=== PATIENT | female | born 1980 | race Asian ===

== ENCOUNTER → 2016-12-23 | Outpatient (CLI) | payer OTHER ==
[2016-12-23 12:34] LABS: ALANINE AMINOTRANSFERASE 19 U/L (12-78); ALBUMIN 4.2 g/dL (3.4-5.0); ALKALINE PHOSPHATASE 58 U/L (46-116); ANION GAP 7 mmol/L (8-16); ASPARTATE AMINOTRANSFERASE 12 U/L (15-37); BILIRUBIN,TOTAL 1.7 mg/dL (0.1-1.0); CALCIUM, TOTAL 8.9 mg/dL (8.8-10.5); CARBON DIOXIDE 26 mmol/L (22-29); CHLORIDE 102 mmol/L (98-107); CHOL/HDL RATIO 2.8 (3.9-5.7); CHOLESTEROL 204 mg/dL (131-200); CREATININE 0.62 mg/dL (0.60-1.30); GLOMERULAR FILTR. RATE CALC > 60 mL/min (>60); GLUCOSE,RANDOM 89 mg/dL (70-110); HDL CHOLESTEROL 72 mg/dL (40-60); LDL CHOL (CALC.) 117 mg/dL (0-130); POTASSIUM 4.5 mmol/L (3.5-5.1); SODIUM SERUM 135 mmol/L (136-145); THYROID STIMULATING HORMONE 1.09 uIU/mL (0.36-3.74); TOTAL PROTEIN, SERUM 7.6 g/dL (6.4-8.2); TRIGLYCERIDES 73 mg/dL (15-150); UREA NITROGEN, BLOOD 9 mg/dL (7-18)
== END | disposition home or self-care (01) ==
LOC: LABPV 11:05
PROVIDERS: ATTEND Internal Medicine
DX: Z00.00 Encounter for general adult medical examination without abnormal findings (principal)
CPT/HCPCS: 84443

== ENCOUNTER → 2017-01-06 | Outpatient (CLI) | payer OTHER ==
[2017-01-06 15:33] LABS: BILIRUBIN,TOTAL 1.3 mg/dL (0.1-1.0)
[2017-01-06 15:34] LABS: BILIRUBIN,DIRECT 0.2 mg/dL (0.00-0.20)
== END | disposition home or self-care (01) ==
LOC: LABPV 14:00
PROVIDERS: ATTEND Internal Medicine
DX: R17 Unspecified jaundice (principal)
CPT/HCPCS: 82247; 82248; 82977

== ENCOUNTER → 2017-04-13 | Outpatient (CLI) | payer OTHER ==
[2017-04-13 15:40] LABS: BASOPHILS % (AUTO) 0.6 % (0.0-2.0); EOSINOPHILS % (AUTO) 1.7 % (1.0-6.0); HEMATOCRIT 41.3 % (36-46); LYMPHOCYTES # (AUTO) 1.6 K/uL (1.0-4.8); LYMPHOCYTES % (AUTO) 29.6 % (22.0-44.0); MEAN CORPUSCULAR HEMOGLOBIN 29.1 pg (26.0-34.0); MEAN CORPUSCULAR HGB CONC 33.8 G/dL (31.0-37.0); MEAN CORPUSCULAR VOLUME 86 fL (80-100); MONOCYTES # (AUTO) 0.3 K/uL (0.1-1.0); MONOCYTES % (AUTO) 5.9 % (2.0-9.0); NEUTROPHILS # (AUTO) 3.3 K/uL (1.8-7.7); NEUTROPHILS % (AUTO) 62.2 % (40.0-70.0); PLATELET COUNT (AUTO) 268 K/uL (150-450); RED CELL DISTRIBUTION WIDTH 12.5 % (11.5-14.5)
== END | disposition home or self-care (01) ==
LOC: LABPV 14:13
PROVIDERS: ATTEND Internal Medicine
DX: R17 Unspecified jaundice (principal)
CPT/HCPCS: 82247

== ENCOUNTER → 2017-06-08 | Outpatient (CLI) | payer OTHER ==
[2017-06-08 16:11] LABS: HEMATOCRIT 41.2 % (36-46); HEMOGLOBIN 14.3 g/dL (12.0-16.0); MEAN CORPUSCULAR HEMOGLOBIN 29.8 pg (26.0-34.0); MEAN CORPUSCULAR HGB CONC 34.7 G/dL (31.0-37.0); MEAN CORPUSCULAR VOLUME 86 fL (80-100); PLATELET COUNT (AUTO) 335 K/uL (150-450); RED CELL DISTRIBUTION WIDTH 13.1 % (11.5-14.5)
[2017-06-08 17:11] LABS: HEMOGLOBIN A1C 5.6 % (4.5-6.2)
== END | disposition home or self-care (01) ==
LOC: LABPV 14:12
PROVIDERS: ATTEND Obstetrics & Gynecology
DX: Z34.81 Encounter for supervision of other normal pregnancy, first trimester (principal); Z3A.00 Weeks of gestation of pregnancy not specified
CPT/HCPCS: 83036; 86900; 86901

== ENCOUNTER → 2017-06-10 | Outpatient (CLI) | payer OTHER ==
[2017-06-10 11:59] LABS: HEMATOCRIT 42.2 % (36-46); HEMOGLOBIN 14.6 g/dL (12.0-16.0); MEAN CORPUSCULAR HEMOGLOBIN 29.6 pg (26.0-34.0); MEAN CORPUSCULAR HGB CONC 34.6 G/dL (31.0-37.0); MEAN CORPUSCULAR VOLUME 86 fL (80-100); PLATELET COUNT (AUTO) 324 K/uL (150-450); RED BLOOD CELL COUNT(AUTO) 4.92 MIL/uL (4.00-5.20)
[2017-06-10 12:14] LABS: HEMOGLOBIN A1C 5.2 % (4.5-6.2)
== END | disposition home or self-care (01) ==
LOC: LABMN 11:32
PROVIDERS: ATTEND Obstetrics & Gynecology
DX: Z34.81 Encounter for supervision of other normal pregnancy, first trimester (principal); Z3A.00 Weeks of gestation of pregnancy not specified
CPT/HCPCS: 83036; 86900; 86901

== ENCOUNTER 2017-06-13 09:06 | Day surgery (SDC) | payer OTHER ==
[~2017-06-13] VITALS: Ht 149.9 cm; Wt 47.7 kg
[~2017-06-13 09:06] MED LIST: RINGERS SOLUTION,LACTATED 1,000 ML IV ONE
[2017-06-13] MEDS ORDERED: FentaNYL CITRATE-PF 100 MCG/2 ML VIAL IVP ONE (09:07)
[2017-06-13] MEDS ORDERED: MIDAZOLAM HCL 2 MG/2 ML VIAL IVP ONE (09:07)
[2017-06-13] MEDS ORDERED: KETOROLAC TROMETHAMINE 60 MG/2 ML VIAL IM ONE (09:07)
[2017-06-13] MEDS ORDERED: LIDOCAINE HCL/PF 2% 5 ML VIAL IM ONE (09:07)
[2017-06-13] MEDS ORDERED: PROPOFOL 1% 20 ML VIAL IVP ONE (09:07)
[2017-06-13] MEDS ORDERED: RINGERS SOLUTION,LACTATED 1,000 ML IV ONE ×2 (09:30→12:32)
[2017-06-13] MEDS ORDERED: METHYLERGONOVINE MALEATE 0.2 MG/ML VIAL ONE (11:28)
[2017-06-13] MEDS ORDERED: HYDROmorphone 2 MG/ML SYRINGE ONE (11:56)
[2017-06-13] MEDS ORDERED: FentaNYL CITRATE-PF 100 MCG/2 ML VIAL IVP PRN (12:00)
[2017-06-13] MEDS ORDERED: HYDROmorphone 2 MG/ML SYRINGE IVP PRN (12:00)
[2017-06-13] MEDS ORDERED: ONDANSETRON HCL 4 MG/2 ML VIAL IVP PRN (12:00)
[2017-06-13] MEDS ORDERED: MORPHINE SULFATE 2 MG/ML SYRINGE IVP PRN (12:00)
[2017-06-13] MEDS ORDERED: MEPERIDINE-PF 25 MG/ML SYRINGE IVP PRN (12:00)
[2017-06-13] MEDS ORDERED: ONDANSETRON HCL 4 MG/2 ML VIAL ONE (12:30)
== END 2017-06-13 14:15 | disposition home or self-care (01) ==
LOC: SURGERY 09:06
PROVIDERS: ATTEND Obstetrics & Gynecology
DX: O02.1 Missed abortion (principal); Z3A.08 8 weeks gestation of pregnancy; Z98.890 Other specified postprocedural states
CPT/HCPCS: 59820; 88305; J1170; J1885; J2210; J2250; J2405; J2704; J3010; J3490; J7120

== ENCOUNTER → 2018-08-07 | Outpatient (CLI) | payer OTHER ==
[2018-08-07 16:12] LABS: BASOPHILS % (AUTO) 0.9 % (0.0-2.0); EOSINOPHILS % (AUTO) 2.8 % (1.0-6.0); HEMATOCRIT 43.6 % (36-46); HEMOGLOBIN 14.4 g/dL (12.0-16.0); LYMPHOCYTES # (AUTO) 1.5 K/uL (1.0-4.8); LYMPHOCYTES % (AUTO) 26.8 % (22.0-44.0); MEAN CORPUSCULAR HEMOGLOBIN 28.4 pg (26.0-34.0); MEAN CORPUSCULAR HGB CONC 33.1 G/dL (31.0-37.0); MEAN CORPUSCULAR VOLUME 86 fL (80-100); MONOCYTES # (AUTO) 0.4 K/uL (0.1-1.0); NEUTROPHILS # (AUTO) 3.6 K/uL (1.8-7.7); NEUTROPHILS % (AUTO) 62.5 % (40.0-70.0); PLATELET COUNT (AUTO) 311 K/uL (150-450); RED BLOOD CELL COUNT(AUTO) 5.07 MIL/uL (4.00-5.20); RED CELL DISTRIBUTION WIDTH 12.3 % (11.5-14.5)
[2018-08-07 16:31] LABS: HEMOGLOBIN A1C 5.4 % (4.5-6.2)
[2018-08-07 16:32] LABS: ALANINE AMINOTRANSFERASE 19 U/L (12-78); ALBUMIN 4.1 g/dL (3.4-5.0); ALKALINE PHOSPHATASE 70 U/L (46-116); ANION GAP 8 mmol/L (8-16); ASPARTATE AMINOTRANSFERASE 15 U/L (15-37); BILIRUBIN,TOTAL 2.3 mg/dL (0.1-1.0); CARBON DIOXIDE 27 mmol/L (22-29); CHLORIDE 103 mmol/L (98-107); CHOL/HDL RATIO 3.6 (3.9-5.7); CHOLESTEROL 208 mg/dL (131-200); CREATININE 0.81 mg/dL (0.60-1.30); GLOMERULAR FILTR. RATE CALC > 60 mL/min (>60); GLUCOSE,RANDOM 92 mg/dL (70-110); HDL CHOLESTEROL 58 mg/dL (40-60); LDL CHOL (CALC.) 126 mg/dL (0-130); POTASSIUM 4.2 mmol/L (3.5-5.1); SODIUM SERUM 138 mmol/L (136-145); TOTAL PROTEIN, SERUM 7.5 g/dL (6.4-8.2); TRIGLYCERIDES 118 mg/dL (15-150); UREA NITROGEN, BLOOD 14 mg/dL (7-18)
[2018-08-07 17:31] LABS: ERYTHROCYTE SEDIMENTATION RATE 6 MM/HR (0-20)
== END | disposition home or self-care (01) ==
LOC: LABPV 15:09
PROVIDERS: ATTEND Internal Medicine
DX: M54.9 Dorsalgia, unspecified (principal)
CPT/HCPCS: 72100; 83036; 85651; 86430

== ENCOUNTER → 2018-12-04 | Outpatient (CLI) | payer OTHER ==
[2018-12-04 14:22] LABS: BILIRUBIN,DIRECT 0.1 mg/dL (0.00-0.20); BILIRUBIN,TOTAL 0.9 mg/dL (0.1-1.0)
== END | disposition home or self-care (01) ==
LOC: LABPV 10:40
PROVIDERS: ATTEND Internal Medicine
DX: R17 Unspecified jaundice (principal)
CPT/HCPCS: 82247; 82248; 82977; 84450; 84460

== ENCOUNTER → 2018-12-10 | Outpatient (CLI) | payer OTHER | END | disposition home or self-care (01) | LOC: RADPV 08:24 | PROVIDERS: ATTEND Internal Medicine | DX: R17 Unspecified jaundice (principal) | CPT/HCPCS: 76700 ==